=== PATIENT | female | born 1965 | race Two or more races ===

== ENCOUNTER 2022-03-10 01:38 | Emergency (ER) | payer OTHER ==
[~2022-03-10] VITALS: Ht 170.2 cm; Wt 81.6 kg
[~2022-03-10 01:38] MED LIST: ATEN50TA; XANEX; ZOLP5TAB
[2022-03-10] MEDS ORDERED: SODIUM CHLORIDE 0.9% 1,000 ML IV ONE ×2 (02:30)
[2022-03-10 02:45] LABS: Basophils # (auto) 0.1 10 ^3/uL (0-0.2); Basophils % (auto) 0.9 % (0.0-2.0); Eosinophils # (auto) 0.3 10 ^3/uL (0-0.8); Eosinophils % (auto) 2.2 % (0.0-7.0); Hemoglobin 12.4 g/dL (12.2-16.2); Lymphocytes # (auto) 2.9 10 ^3/uL (0.4-5.4); Lymphocytes % (auto) 22.6 % (10.0-50.0); Mean Corpuscular Hemoglobin 29.4 pg (28.0-32.0); Mean Corpuscular Hgb Conc. 34.4 g/dL (32.0-36.0); Mean Corpuscular Volume 85.5 fL (80.0-100.0); Monocytes # (auto) 0.9 10 ^3/uL (0-1.3); Monocytes % (auto) 7.3 % (0.0-12.0); Neutrophils # (auto) 8.5 10 ^3/uL (1.6-8.6); Red Blood Cells 4.21 10^6/uL (4.0-5.20); White Blood Cell 12.7 10^3/uL (4.4-10.8)
[2022-03-10 03:03] LABS: Albumin 3.5 g/dL (3.4-5.0); Calcium 8.6 mg/dL (8.5-10.1); Potassium 3.6 mmol/L (3.5-5.1)
[2022-03-10 03:06] LABS: Bilirubin, Total 0.4 mg/dL (0.2-1.0); Total Protein 6.8 g/dL (6.4-8.2)
[2022-03-10 06:20] VITALS: BP 135/78
== END 2022-03-10 06:33 | disposition home or self-care (01) ==
LOC: EDBD 01:38 → ER 01:38
DX: R55 Syncope and collapse (principal); I95.9 Hypotension, unspecified; E86.0 Dehydration; I10 Essential (primary) hypertension
CPT/HCPCS: 36415; 71045; 80053; 83880; 84484; 85025; 93005; 96360; 96361; 99285; J7030

== ENCOUNTER 2025-03-23 16:32 | Emergency (ER) | payer OTHER ==
[~2025-03-23] VITALS: Ht 152.4 cm; Wt 68.1 kg
[2025-03-23 16:39] VITALS: TEMP 97.5
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
[2025-03-23 18:30] VITALS: BP 134/76
[2025-03-23] MEDS: traMADol HCL 50 MG TAB PO ONE (19:02)
[2025-03-23] MEDS: IBUPROFEN 600 MG TAB PO ONE (19:02)
[2025-03-23 19:04] VITALS: PULSE 92; RESP 18; O2SAT 91
== END 2025-03-23 19:19 | disposition home or self-care (01) ==
LOC: ER 16:32 → EDBD 16:32 → ER 19:18
DX: S80.02XA Contusion of left knee, initial encounter (principal); S00.81XA Abrasion of other part of head, initial encounter; S80.211A Abrasion, right knee, initial encounter; E11.9 Type 2 diabetes mellitus without complications; I10 Essential (primary) hypertension; Z88.5 Allergy status to narcotic agent; Y08.89XA Assault by other specified means, initial encounter; Y93.01 Activity, walking, marching and hiking; Y92.89 Other specified places as the place of occurrence of the external cause; Y99.8 Other external cause status
CPT/HCPCS: 70140; 73560